=== PATIENT | female | born 1960 | race Two or more races ===

== ENCOUNTER → 2025-07-22 | Outpatient (CLI) | payer MEDICARE, MEDICAID, SELFPAY ==
--- NOTE | 2025-07-22 10:06 | XR_ITS ---
Examination: Knee bilateral, 4 views Technique: Knee AP, lateral, each knee total 4 views Date and time of exam: July 22, 2025, 10:00 a.m. INDICATIONS: Bilateral knee pain 1 year FINDINGS: Significant osteopenia Bilateral total knee arthroplasties with no evidence of loosening No fractures No cortical bone destruction IMPRESSION: Bilateral total knee arthroplasties with satisfactory alignment
== END | disposition home or self-care (01) ==
LOC: CDIM 09:54
PROVIDERS: PCP Registered Nurse Community Health; Referring Provider Orthopaedic Surgery; Visit Provider Orthopaedic Surgery
DX: M25.561 Pain in right knee (principal); M25.562 Pain in left knee; Z96.653 Presence of artificial knee joint, bilateral
CPT/HCPCS: 73560

== ENCOUNTER → 2025-07-23 | Outpatient (CLI) | payer MEDICARE, MEDICAID, SELFPAY ==
--- NOTE | 2025-07-23 12:34 | XR_ITS ---
Examination: Duplex scan of the lower extremity, unilateral right complete Date and time of exam: July 23, 2025, 1245 hours INDICATIONS: Right leg edema and pain 5 months Technique: Duplex scan of the extremity veins using B-mode/grayscale imaging and Doppler spectral analysis and color flow Attention is directed to internal echogenicity, compression and augmentation involving these veins, color flow assessment, spectral analysis Findings: Major deep venous structures in the extremity demonstrate normal course and caliber. There is no evidence of deep vein thrombosis. Normal color flow and spectral analysis Impression: Negative for DVT..
== END | disposition home or self-care (01) ==
PROVIDERS: PCP Registered Nurse Community Health; Referring Provider Registered Nurse Community Health; Visit Provider Registered Nurse Community Health
DX: R22.41 Localized swelling, mass and lump, right lower limb (principal); R60.0 Localized edema
CPT/HCPCS: 93971

== ENCOUNTER → 2025-07-24 | Outpatient (CLI) | payer MEDICARE, MEDICAID, SELFPAY ==
--- NOTE | 2025-07-24 12:49 | XR_ITS ---
EXAMINATION: Ultrasound arterial sonography right lower extremity arteries TECHNIQUE: Multiple sonographic images lower extremity arteries obtained Date and time: July 24, 2025, 1302 hours INDICATIONS: Swelling in the leg and ankle 5 months FINDINGS: Biphasic flow involving right superficial femoral popliteal peroneal posterior tibial arteries monophasic flow involving dorsalis pedis artery IMPRESSION: Obstructive arterial disease involving the right lower extremity, consider correlation with CTA abdominal aorta iliofemoral runoff post intravenous contrast
== END | disposition home or self-care (01) ==
PROVIDERS: PCP Registered Nurse Community Health; Referring Provider Registered Nurse Community Health; Visit Provider Registered Nurse Community Health
DX: I77.89 Other specified disorders of arteries and arterioles (principal)
CPT/HCPCS: 93926

== ENCOUNTER → 2025-08-02 | Outpatient (CLI) | payer MEDICARE, MEDICAID, SELFPAY ==
--- NOTE | 2025-08-02 10:32 | XR_ITS ---
EXAMINATION: Ankle, right 3 views. Technique: Ankle AP, oblique, lateral 3 views Date and time of exam: August 02, 2025, 1042 hours INDICATIONS: Right ankle pain and mass on the lateral side of the ankle for months. FINDINGS: Severe osteopenia. No fracture or dislocation. Large posterior bony calcaneal spur IMPRESSION: Large posterior bony calcaneal spur
[2025-08-02 11:08] LABS: Albumin, Serum 4.9 gm/dL (3.4-4.8); Anion Gap 8 (7-16); BUN/Creatinine Ratio 13 Ratio (12-20); Blood Urea Nitrogen 10 mg/dL (9-23); Calcium 9.6 mg/dL (8.3-10.6); Carbon Dioxide 27.6 mMol/L (20.0-31.0); Chloride 107 mMol/L (98-107); Creatinine (Component) 0.8 mg/dL (0.6-1.3); Glucose 93 mg/dL (74-106); Osmolality,Calculated 283 (275-295); Phosphorous 2.7 mg/dL (2.4-5.1); Potassium 3.8 mMol/L (3.4-5.1); Sodium 143 mMol/L (136-145); eGFR > 60 See Note
[2025-08-02 11:09] LABS: Calcium (Corrected) 9.6 mg/dL (8.5-10.1)
== END | disposition home or self-care (01) ==
PROVIDERS: PCP Registered Nurse Community Health; Referring Provider Registered Nurse Community Health; Visit Provider Radiology Diagnostic Radiology
DX: M77.31 Calcaneal spur, right foot (principal); I10 Essential (primary) hypertension
CPT/HCPCS: 36415; 73610; 80069

== ENCOUNTER → 2025-08-08 | Outpatient (CLI) | payer MEDICARE, MEDICAID, SELFPAY ==
--- NOTE | 2025-08-08 07:30 | XR_ITS ---
Examination: CTA abdominal aorta iliofemoral runoff. 2-D sagittal coronal reconstructions. 3-D reconstructions, vascular August 08, 2025, 0900 hours INDICATIONS: Lower leg pain and swelling on the right 3 months Technique: Multiple CTA images of the abdominal aorta iliofemoral runoff arterial vessels, 2.0 mm slice thickness, post intravenous administration 130 cc [id number] 2-D sagittal coronal reconstructions. 3-D reconstructions, vascular 3-D postprocessing, including vascular maximum intensity projection images, 3-D volume rendering Low dose protocols were performed. One or more of the following dose reduction techniques were used; automated exposure control, adjustment of the mA and/or KV according to patient size, use of iterative reconstruction technique. Findings: No focal liver or splenic lesion No gallstones No pancreatic or adrenal mass Small benign bilateral renal cysts, no hydronephrosis No bowel obstruction Normal appendix Uterine masses consistent with fibroid degeneration Urinary bladder intact Abdominal aorta is not enlarged No significant stenosis the celiac superior mesenteric or renal axes Common iliac external iliac common femoral arteries are intact Bilateral superficial femoral arteries demonstrate no significant stenoses There are significant artifacts involving the popliteal arteries because of knee replacements Distal popliteal arteries and trifurcation arteries do fill to the ankle IMPRESSION: Recommend pelvic sonography to assess uterine masses No significant obstructive arterial disease involving the aorta vessels of the abdomen pelvis or lower extremities Consider ultrasound soft tissue of any palpable lump in the right lower leg.
== END | disposition home or self-care (01) ==
PROVIDERS: PCP Registered Nurse Community Health; Referring Provider Registered Nurse Community Health; Visit Provider Registered Nurse Community Health
DX: R22.41 Localized swelling, mass and lump, right lower limb (principal); I70.211 Atherosclerosis of native arteries of extremities with intermittent claudication, right leg; I70.221 Atherosclerosis of native arteries of extremities with rest pain, right leg
CPT/HCPCS: 75635; A4649; Q9967